=== PATIENT | male | born 1985 | race Caucasian/White ===

== ENCOUNTER 2017-06-15 08:13 | Emergency (ER) | payer MEDICAID ==
[2017-06-15] MEDS ORDERED: Acetaminophen/oxyCODONE 325-5 MG Tab PO ONE (08:45)
--- NOTE | 2017-06-15 08:48 | EDM.PDOC ---
ED HPI GENERAL MEDICAL PROBLEM - General Chief Complaint: ENT Problem Stated Complaint: TOOTH PAIN Time Seen by Provider: 06/15/17 08:45 Source of Information: Reports: Patient History Limitations: Reports: No Limitations - History of Present Illness INITIAL COMMENTS - FREE TEXT/NARRATIVE: 31-year-old male presents to the ED with severe left upper molar dental pain the last 3-1/2 days. Has not slept for 2-1/2 nights. Pain is constant and throbbing. Unable to eat on that side. Tooth is been fractured and decayed for a lengthy period of time and is not had the monies to have it repaired. His fever or chills. Denies flulike his throat is closing. Onset: Gradual Onset Date: 06/13/17 Duration: Hour(s): Location: Reports: Face (Left dental pain upper molar) Quality: Reports: Ache, Pressure (Pounding), Throbbing, Other Severity: Severe Improves with: Reports: None (10 out of 10) Worsens with: Reports: Eating, Other Context: Denies: Activity, Exercise (Exposure to cold air), Lifting, Sick Contact, Trauma, Other Associated Symptoms: Reports: No Other Symptoms Treatments BLOCK PILER: Reports: Acetaminophen, NSAIDS Left Lower Tooth/Teeth Pain Score (Numeric/FACES): 10 - Related Data Allergies Allergy/AdvReac Type Severity Reaction Status Date / Time No Known Allergies Allergy Verified 06/15/17 08:27 Home Meds: Home Meds Amoxicillin/Potassium Clav [Augmentin 500-125 Tablet] 1 each PO BID #24 tablet 06/15/17 [Rx] oxyCODONE HCl/Acetaminophen [Percocet 5-325 mg Tablet] 1 - 2 each PO Q4H PRN # 20 tablet 06/15/17 [Rx] Past Medical History - Past Health History Medical/Surgical History: Denies Medical/Surgical History - Infectious Disease History Infectious Disease History: Reports: Chicken Pox Social & Family History - Tobacco Use Smoking Status *Q: Current Every Day Smoker Years of Tobacco use: 20 Packs/Tins Daily: 0.5 Used Tobacco, but Quit: No - Caffeine Use Caffeine Use: Reports: Soda - Recreational Drug Use Recreational Drug Use: No - Living Situation & Occupation Living situation: Reports: Occupation: Unemployed ED ROS ENT - Review of Systems Review Of Systems: See Below Constitutional: Reports: Malaise, Weakness, Fatigue, Decreased Appetite (From not sleeping). Denies: Fever, Chills HEENT: Reports: Dental Pain Respiratory: Reports: No Symptoms (See history of present illness) Cardiovascular: Reports: No Symptoms Endocrine: Reports: No Symptoms GI/Abdominal: Reports: No Symptoms : Reports: No Symptoms Musculoskeletal: Reports: No Symptoms Skin: Reports: No Symptoms Neurological: Reports: No Symptoms Psychiatric: Reports: No Symptoms Hematologic/Lymphatic: Reports: No Symptoms ED EXAM, ENT - Physical Exam Exam: See Below Exam Limited By: No Limitations General Appearance: Alert, Moderate Distress Ears: Normal External Exam, Normal TMs Mouth/Throat: Dental Abcess, Dental Pain, Dental Tenderness (Left upper second molar is badly decayed with over 40% of the tooth absent. No obvious purulent material on the gingiva margin. Exquisitely tender to touch on tongue blade) Head: Atraumatic, Normocephalic Neck: Normal Inspection, Supple, Non-Tender, Full Range of Motion. No: Lymphadenopathy (L), Lymphadenopathy (R) Respiratory/Chest: No Respiratory Distress, Lungs Clear, Normal Breath Sounds, No Accessory Muscle Use Cardiovascular: Normal Peripheral Pulses, Regular Rate, Rhythm, No Edema, No Murmur, No Rub Course - Vital Signs Last Recorded V/S: Last Vital Signs Temp 36.6 C 06/15/17 08:27 Pulse 78 06/15/17 08:27 Resp 18 06/15/17 08:27 BP 115/83 06/15/17 08:27 Pulse Ox 98 06/15/17 08:27 - Orders/Labs/Meds Orders: Active Orders 24 hr Category Date Time Status Amoxicillin/Clavulanate K [Augmentin 500 MG\125 MG] Med 06/15/17 09:00 Active 1 tab PO Q12HR Medication Orders Amoxicillin/Clavulanate Potassium (Augmentin 500 Mg\125 Mg) 1 tab PO Q12HR LUCIEN Meds: Medications Generic Name Dose Route Start Last Admin Trade Name Freq PRN Reason Stop Dose Admin Amoxicillin/Clavulanate Potassium 1 tab 06/15/17 09:00 Augmentin 500 Mg\125 Mg PO Q12HR LUCIEN Discontinued Medications Generic Name Dose Route Start Last Admin Trade Name Freq PRN Reason Stop Dose Admin Oxycodone/Acetaminophen 2 tab 06/15/17 08:45 Percocet 325-5 Mg PO 06/15/17 08:46 ONETIME ONE - Radiology Interpretation Free Text/Narrative:: 31-year-old male presents the ED with severe dental pain left upper molar tooth. Examination reveals 40% of the tooth is gone due to dental caries and fractured tooth. No gingival abscess present. Suspect a periapical abscess treated with Augmentin 500 mg twice daily for the next 8 days. Continue Motrin 6 mg every 6 hours for pain relief as he has been doing. Given Percocet 5/3/25 milligram tablets 20 one or 2 every 4-6 hours for pain relief. Will have to follow-up with dentist to have this tooth completely excised due to the severity of its damage. At present he is not sure when able do this because he is a does not have sufficient money for dental care.. Departure - Departure Time of Disposition: 08:46 Disposition: Home, Self-Care 01 Condition: Fair Clinical Impression: Dental abscess - Discharge Information Prescriptions: Amoxicillin/Potassium Clav [Augmentin 500-125 Tablet] 1 each PO BID #24 tablet oxyCODONE HCl/Acetaminophen [Percocet 5-325 mg Tablet] 1 - 2 each PO Q4H PRN # 20 tablet PRN Reason: pain relief. Referrals: Joni Rick Jr, MD [Primary Care Provider] - Forms: ED Department Discharge Additional Instructions: Evaluation the emergency room today in regards to severe pain left upper second molar tooth which is badly decayed and fractured. Dental infection is evident. Treatment is antibiotic Augmentin 500 mg twice daily for the next 8/2 days. First dose provided in the ED. Continue ibuprofen 600 mg every 6 hours to reduce pain and inflammation. Percocet tablets 5/3 expect marked improvement in pain over the next 48-72 hours. 25 milligrams one or 2 every 4-6 hours for pain not controlled by Motrin alone. First tablets were provided through the ED this morning. Obviously the tooth is going to need to be extracted by oral surgeon. Follow up with oral surgeon when able. - My Orders Last 24 Hours: My Active Orders 06/15/17 09:00 Amoxicillin/Clavulanate K [Augmentin 500 MG\125 MG] 1 tab PO Q12HR - Assessment/Plan Last 24 Hours: My Active Orders 06/15/17 09:00 Amoxicillin/Clavulanate K [Augmentin 500 MG\125 MG] 1 tab PO Q12HR
[2017-06-15] MEDS ORDERED: Acetaminophen/oxyCODONE 325-5 MG Tab ONE (08:55)
[2017-06-15] MEDS ORDERED: Amoxicillin/Clavulanate K 500-125 MG Tab PO SCH (09:00)
== END 2017-06-15 08:59 | disposition home or self-care (01) ==
LOC: JD.ED 08:13
DX: K04.7 Periapical abscess without sinus (principal); K03.81 Cracked tooth; F17.210 Nicotine dependence, cigarettes, uncomplicated
CPT/HCPCS: 99283; A9270